=== PATIENT | female | born 1960 | race Caucasian/White ===

== ENCOUNTER 2020-12-24 14:46 | Emergency (ER) | payer MEDICARE, MEDICAID ==
[~2020-12-24] VITALS: Ht 144.8 cm; Wt 81.8 kg
[2020-12-24 14:49] VITALS: Ht 144.8 cm; Wt 81.8 kg
[2020-12-24] MEDS ORDERED: HYDROCODONE-AC1 EAC2 (14:55)
[2020-12-24] MEDS ORDERED: VITAMIN D21250 MC1 PO (14:56)
[2020-12-24] MEDS ORDERED: METHOCARBAMOL500 MG PO (15:44)
[2020-12-24 17:01] VITALS: BP 170/94
== END 2020-12-24 16:55 | disposition home or self-care (01) ==
LOC: D.ER 14:46
DX: R51.9 Headache, unspecified (principal); H57.11 Ocular pain, right eye; M25.552 Pain in left hip; M54.16 Radiculopathy, lumbar region; I10 Essential (primary) hypertension; J44.9 Chronic obstructive pulmonary disease, unspecified; K21.9 Gastro-esophageal reflux disease without esophagitis; Z72.0 Tobacco use